=== PATIENT | male | born 1940 | race Caucasian/White ===

== ENCOUNTER 2024-04-26 11:16 | Emergency (ER) | payer MEDICARE, OTHER ==
[~2024-04-26] VITALS: Ht 172.7 cm; Wt 79.4 kg
[~2024-04-26 11:16] MED LIST: AMLODIPINE BESY10 MG PO; ASPI81EC; ATOR20; ATOR40TA PO; CIPR500 PO; COLCHICINE0.6 MG PO; Cranberry400 MG; DOXAZOSIN MESYLA2 MG PO; FISH OIL 1,2001 EAC4; HYDACE5 PO; Imdur-ER60 MG PO; METO100ER; OLME20-12.; OLMESARTAN MEDO40 MG PO; OMEP20ER PO; OXAYDO5 M1 PO; PANTOPRAZOLE SO2010; PLAVIX75 MG PO; POTASSIUM CITRA5 M10; TAMS.4ER PO
[2024-04-26] MEDS ORDERED: NS 1,000 ML IV SCH (11:25)
[2024-04-26 11:54] LABS: BASOPHILS ABSOLUTE AUTO 0.03 K/mm3 (0.00-0.23); BASOPHILS PERCENT AUTO 1 % (0-2); EOSINOPHILS ABSOLUTE AUTO 0.06 K/mm3 (0.00-0.68); EOSINOPHILS PERCENT AUTO 1 % (0-6); Hematocrit 39.1 % (37.0-53.0); Hemoglobin 13.2 g/dL (13.5-17.5); IMMATURE GRAN ABSOLUTE AUTO 0.01 K/mm3 (0.00-0.10); IMMATURE GRAN PERCENT AUTO 0 % (0-1); LYMPHOCYTES ABSOLUTE AUTO 1.65 K/mm3 (0.84-5.20); LYMPHOCYTES PERCENT AUTO 28 % (21-46); MONOCYTES ABSOLUTE AUTO 0.68 K/mm3 (0.16-1.47); MONOCYTES PERCENT AUTO 12 % (4-13); Mean Corpuscular HGB 31.4 pg (26.0-34.0); Mean Corpuscular HGB Conc 33.8 g/dL (31.5-36.5); Mean Corpuscular Volume 93 fL (80-100); Mean Platelet Volume 10.4 fL (9.1-12.4); NEUTROPHILS ABSOLUTE AUTO 3.39 K/mm3 (1.96-9.15); NEUTROPHILS PERCENT AUTO 58 % (41-73); Platelet Count 162 K/mm3 (150-400); RDW Coefficient Variation 13.2 % (11.7-14.2); RDW Standard Deviation 44.7 fL (35.1-46.3); Red Blood Cell Count 4.21 M/mm3 (4.30-5.90); White Blood Cell Count 5.82 K/mm3 (4.00-11.30)
[2024-04-26 11:59] LABS: Albumin, Blood 3.8 g/dL (3.4-5.0); Albumin/Globulin Ratio 1.3 (0.8-1.8); Bilirubin, Total 0.7 mg/dL (0.1-1.0); Bun/Creatinine Ratio 11.8 (12.0-20.0); Calcium, Blood 9.2 mg/dL (8.5-10.1); Creatinine, Blood 1.44 mg/dL (0.60-1.20); Total Protein, Blood 6.8 g/dL (6.4-8.2)
[2024-04-26 12:38] LABS: Source, Urine Clean Catch
[2024-04-26 12:41] LABS: Appearance, Urine Clear (Clear); Bilirubin, Urine Neg (Neg); Blood, Urine Neg (Neg); Color, Urine Yellow (P-Yellow); Glucose Qualitative, Urine Neg (Neg); Ketones, Urine Neg (Neg); Leukocyte Esterase, Urine Neg (Neg); Nitrite, Urine Neg (Neg); Protein, Urine 1+ (Neg); Urobilinogen, Urine NORM (Normal)
[2024-04-26 12:47] VITALS: BP 148/70
[2024-04-26] MEDS ORDERED: Clopidogrel Bisulfate 75 MG Tab PO ONE (13:55)
[2024-04-26] MEDS ORDERED: Aspirin 325 MG Tab PO ONE (13:55)
[2024-04-26] MEDS ORDERED: Aspir 8181 MG PO (14:17)
== END 2024-04-26 14:32 | disposition home or self-care (01) ==
LOC: ER 11:16
PROVIDERS: Emergency Medicine
DX: G45.9 Transient cerebral ischemic attack, unspecified (principal); I10 Essential (primary) hypertension; E78.5 Hyperlipidemia, unspecified; K21.9 Gastro-esophageal reflux disease without esophagitis; Z79.899 Other long term (current) drug therapy; Z79.82 Long term (current) use of aspirin
CPT/HCPCS: 70450; 80053; 83735; 85025; 93005; 93010; 93880; 96360; 99285-25; A9270; J7030

== ENCOUNTER 2024-07-01 18:24 | Inpatient (IN) | payer MEDICARE, OTHER ==
[~2024-07-01] VITALS: Ht 172.7 cm; Wt 76.5 kg
[~2024-07-01 18:24] MED LIST changes: +Aspir 8181 MG PO
[2024-07-01 20:31] LABS: BASOPHILS ABSOLUTE AUTO 0.03 K/mm3 (0.00-0.23); BASOPHILS PERCENT AUTO 0 % (0-2); EOSINOPHILS ABSOLUTE AUTO 0.02 K/mm3 (0.00-0.68); EOSINOPHILS PERCENT AUTO 0 % (0-6); Hematocrit 33.7 % (37.0-53.0); Hemoglobin 11.4 g/dL (13.5-17.5); IMMATURE GRAN ABSOLUTE AUTO 0.04 K/mm3 (0.00-0.10); IMMATURE GRAN PERCENT AUTO 0 % (0-1); LYMPHOCYTES ABSOLUTE AUTO 1.37 K/mm3 (0.84-5.20); LYMPHOCYTES PERCENT AUTO 14 % (21-46); MONOCYTES ABSOLUTE AUTO 1.16 K/mm3 (0.16-1.47); MONOCYTES PERCENT AUTO 12 % (4-13); Mean Corpuscular HGB 31.7 pg (26.0-34.0); Mean Corpuscular HGB Conc 33.8 g/dL (31.5-36.5); Mean Corpuscular Volume 94 fL (80-100); Mean Platelet Volume 10.1 fL (9.1-12.4); NEUTROPHILS ABSOLUTE AUTO 6.96 K/mm3 (1.96-9.15); NEUTROPHILS PERCENT AUTO 73 % (41-73); Platelet Count 143 K/mm3 (150-400); RDW Coefficient Variation 13.6 % (11.7-14.2); RDW Standard Deviation 46.5 fL (35.1-46.3); White Blood Cell Count 9.58 K/mm3 (4.00-11.30)
[2024-07-01 20:54] LABS: Albumin, Blood 3.3 g/dL (3.4-5.0); Albumin/Globulin Ratio 1.1 (0.8-1.8); Bun/Creatinine Ratio 13.1 (12.0-20.0); Creatinine, Blood 2.21 mg/dL (0.60-1.20); Potassium, Blood 4.2 mmol/L (3.5-5.5); Total Protein, Blood 6.3 g/dL (6.4-8.2)
[2024-07-01 22:50] LABS: Source, Urine Voided
[2024-07-01 22:57] LABS: Appearance, Urine Clear (Clear); Bilirubin, Urine Neg (Neg); Blood, Urine Neg (Neg); Glucose Qualitative, Urine Neg (Neg); Ketones, Urine Neg (Neg); Leukocyte Esterase, Urine Neg (Neg); Nitrite, Urine Neg (Neg); Protein, Urine 1+ (Neg); Urobilinogen, Urine NORM (Normal)
[2024-07-01 23:02] LABS: Color, Urine Pale Yellow (P-Yellow)
[2024-07-01] MEDS ORDERED: NS 1,000 ML IV SCH (23:15)
[2024-07-01] MEDS ORDERED: Magnesium Hydroxide Conc 10 ML UDC PO PRN (23:45)
[2024-07-01] MEDS ORDERED: FLU VACC TS2024-25(6MOS UP)/PF 45 MCG/0.5 ML SYRINGE IM ONE (23:50)
[2024-07-02] VITALS (7 sets, daily range): BP systolic 114–171; BP diastolic 61–98
--- NOTE | 2024-07-02 04:38 | NUR ---
SHIFT SUMMARY 84 YR M ADMITTED ON 07/01/24. FULL CODE. PT ABLE TO ANSWER ORIENTING QUESTIONS BUT IS VERY CONFUSED. USE OF THE CALL LIGHT WAS EXPLAINED TO HIM MULTIPLE TIMES BUT HE REFUSED TO USE IT BEFORE GETTING OUT OF BED ON HIS OWN. HE WOULD THEN YELL AT THE NURSE SAYING HE HAD NO WAY TO CONTACT HER AND THIS WAS HAPPENING BECAUSE OF INSURANCE. HE EXPRESSED THAT HE IS ANGRY FOR HAVING TO WAIT SO LONG IN THE ER. HE THEN PULLED HIS IV OUT AND SOMEHOW MANAGED TO GET BLOOD ALL OVER THE BED, FLOOR, SIDERAILS, TELE, AND HIMSELF. HE NEEDS CONSTANT DIRECTION AND IS ONLY BRIEFLY REDIRECTABLE. A NEW IV WAS PLACED IN HIS RIGHT AC. WILL CONTINUE TO MONITOR. BED IN LOW POSITION WITH ALARM ON, AND CALL LIGHT IN REACH.
[2024-07-02 05:45] LABS: Bun/Creatinine Ratio 14.3 (12.0-20.0); Calcium, Blood 8.8 mg/dL (8.5-10.1); Creatinine, Blood 1.68 mg/dL (0.60-1.20)
[2024-07-02] MEDS ORDERED: Heparin Sodium 5000 Units/ML 1ML MDV SC SCH (09:00)
[2024-07-02] MEDS ORDERED: NS 1,000 ML IV SCH ×3 (09:16→15:45)
[2024-07-02] MEDS ORDERED: QUEtiapine Fumarate 25 MG Tab PO PRN (13:15)
[2024-07-02] MEDS ORDERED: OLANZapine 10 MG Vial IM PRN (13:15)
[2024-07-02] MEDS ORDERED: CefTRIAXone Sodium 1,000 MG in NS 100 ML IV SCH (13:30)
[2024-07-02] MEDS ORDERED: MetroNIDAZOLE 500MG/NS 100 ml 100 ML IV SCH (14:30)
[2024-07-02] MEDS ORDERED: LORazepam 0.5 MG Tab PO ONE (15:20)
[2024-07-02] MEDS ORDERED: LORazepam 2 MG/ML 1ML Injection IV PRN ×3 (15:30→21:05)
[2024-07-02 15:44] LABS: BASOPHILS ABSOLUTE AUTO 0.02 K/mm3 (0.00-0.23); BASOPHILS PERCENT AUTO 0 % (0-2); EOSINOPHILS ABSOLUTE AUTO 0.02 K/mm3 (0.00-0.68); EOSINOPHILS PERCENT AUTO 0 % (0-6); Hematocrit 35.8 % (37.0-53.0); Hemoglobin 12.7 g/dL (13.5-17.5); IMMATURE GRAN ABSOLUTE AUTO 0.03 K/mm3 (0.00-0.10); IMMATURE GRAN PERCENT AUTO 0 % (0-1); LYMPHOCYTES ABSOLUTE AUTO 0.87 K/mm3 (0.84-5.20); LYMPHOCYTES PERCENT AUTO 10 % (21-46); MONOCYTES ABSOLUTE AUTO 1.07 K/mm3 (0.16-1.47); MONOCYTES PERCENT AUTO 12 % (4-13); Mean Corpuscular HGB 32.2 pg (26.0-34.0); Mean Corpuscular HGB Conc 35.5 g/dL (31.5-36.5); Mean Corpuscular Volume 91 fL (80-100); Mean Platelet Volume 11.5 fL (9.1-12.4); NEUTROPHILS ABSOLUTE AUTO 6.98 K/mm3 (1.96-9.15); NEUTROPHILS PERCENT AUTO 78 % (41-73); Platelet Count 192 K/mm3 (150-400); RDW Coefficient Variation 13.7 % (11.7-14.2); RDW Standard Deviation 45.9 fL (35.1-46.3); Red Blood Cell Count 3.94 M/mm3 (4.30-5.90); White Blood Cell Count 8.99 K/mm3 (4.00-11.30)
[2024-07-02] MEDS ORDERED: LORazepam 2 MG/ML 1ML Injection ONE (16:29)
[2024-07-02] MEDS ORDERED: LORazepam 2 MG/ML 1ML Injection IV ONE (16:30)
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
--- NOTE | 2024-07-02 17:16 | NUR ---
TRANSFER UPDATE REPORT RECIEVED FROM [facility] STAFF AT BEDSIDE AT 1600. FAMILY PRESENT AT THIS TIME. PT AGITATED AND RESTLESS AND IN TOUGH CUFFS. PT HALLUCINATING AND MUMBLING TO NO ONE LOOKING TOWARD COMPUTER IN THE ROOM. PT ORIENTED TO SELF AT THIS TIME. PT UNABLE TO IDENTIFY HIS DAUGHTER IN THE ROOM. THIS RN UPDATED FAMILY ON TRANSFER TO PCU, FAMILY VERBALLY UNDERSTOOD. MD NOTIFED OF AGGRESSION TOWARD STAFF PREVIOUSLY AND MD GAVE VERBAL ORDER FOR 1 MG ATIVAN FOR TRANSFER. ORDER PLACED AND 1 MG ATIVAN GIVEN FOR TRANSFER. PT CONTINUED TO BE RESTLESS ATIVAN WAS BEING PREPARED. MED FLOOR IMMIGRATION SERVICES OFFICER ATTEMPTED TO CALM PT DOWN. PT HEARD STATING "GET TYHE HELL AWAY FROM ME" TOP MED FLOOR IMMIGRATION SERVICES OFFICER. THIS RN ASKED ABOUT OTHER POSSIBLE TRIGGERS FOR PT. PT TRNASFERED TO PCU AT 1645 VIA HOSPITAL BED AND TOUGH CUFFS IN PLACE. PT BELONGINGS GATHERED AND TRANSFERED TO PCU 10 ALONG WITH CHART. PT CONTINUES TO BE RESTLESS AFTER RECIEVING 1 MG ATIVAN PER ORDER. PT SLEEPING HEAVILY AT ARRIVAL TO PCU BUT EXTREMITIES CONTINUE TO BE RESTLESS, PULLING AND KICKING. FAMILY IN PCU 10 AT TIME OF ARRIVAL. PT ROOM WITH MOST OF ITEMS REMOVED FOR SAFETY. VSS AT TIME OF ARRIVAL TO UNIT. PT SNORING WITH SATS RANGING 89-91%. LS CLEAR BUT DIFFICULT TO HEAR D/T SNORING. PT NOT ENDORSING PAIN AT THIS TIME. PT FAMILY LEFT TO LOWER STIMULI IN ROOM FOR PT TO TRY AND REST. PT DAUGHTER PEYTON LEFT HER PHONE NUMBER ON WHITE BOARD AND ASKED TO HAVE MD CALL WITH HEAD CT RESULTS SOON POSSIBLE. IV ABX INTITIATED ON MED FLOOR JUST PT WAS LEAVING [facility] FLOOR. NS TO RUN PER ORDER AFTER ABX IS COMPLETE. PT RESTRAINSTS ASSESSED AT TIME OF ARRIVAL, GOOD CIRCULATION NOTED IN ALL EXTREMITIES. CALL LIGHT PLACED IN REACH OF PT RIGHT HAND AND TELEMTRY REAPPLIED. BED IN LOWEST POSITION.
[2024-07-02 17:28] LABS: C-REACTIVE PROTEIN, EXT RANGE 3.26 mg/dL (0.000-0.300)
[2024-07-02 17:30] LABS: Albumin, Blood 3.5 g/dL (3.4-5.0); Albumin/Globulin Ratio 1.1 (0.8-1.8); Bilirubin, Total 0.8 mg/dL (0.1-1.0); Bun/Creatinine Ratio 15.5 (12.0-20.0); Calcium, Blood 8.8 mg/dL (8.5-10.1); Creatinine, Blood 1.42 mg/dL (0.60-1.20); Globulin, Blood 3.2 g/dL (2.2-4.0); Total Protein, Blood 6.7 g/dL (6.4-8.2)
[2024-07-02 19:42] LABS: Base Excess Venous -1.5 mmol/L; Bicarbonate Venous 22.9 mmol/L (24.0-30.0); PCO2 Venous 40.5 mmHg (38-42); pH Blood Venous 7.38 (7.34-7.37)
[2024-07-02] MEDS ORDERED: Flumazenil 0.1 MG / ML 5ML Vial ONE (20:30)
[2024-07-02] MEDS ORDERED: Flumazenil 0.1 MG / ML 5ML Vial IV ONE ×2 (20:45)
--- NOTE | 2024-07-02 21:00 | NUR ---
ASSUMPTION OF CARE/UPDATE PATIENT RESTRAINED IN TOUGH CUFFS. EYES CLOSED BUT IS RESTLESS IN BED DURING BEDSIDE REPORT. PATIENT ON RA, TACHYPNEIC, SNORE PRESENT, SPO2 88-90s. TACHYCARDIAC WITH HR 120-130s. PER REPORT, PATIENT AWAITNG HEAD CT BUT WAS UNABLE TO BE COMPLETED BECAUSE PATIENT IS TOO RESTLESS AND WOULD NOT BE ABLE TO STAY STILL FOR SCAN. RESIDENT IN UNIT DURING REPORT, ORDER FOR VBG RECEIVED. CALL PLACED TO DISTRICT SALES MANAGER REGARDING POSSIBLE IMAGING D/T INCREASE RESTLESSNESS AND AGITATION. PATIENT TO BE TRANSFERRED WITH ASSISTANCE IN ATTEMPT TO GET SCAN COMPLETED. ATIVAN ADMINISTERED IN CT D/T PATIENT THRASHING IN BED. MULTIPLE ATTEMPTS MADE TO GET SCAN COMPLETED AND WAS SUCCESSFUL. PATIENT TRANSFERRED BACK TO PCU AND BECAME INCREASINGLY SEDATED. HORACIO CALLED TO BEDSIDE, REVERSAL GIVEN PER ORDER. RT PLACED NASAL TRUMPET AND NONREBREATHER WAS PLACED ON PATIENT. PATIENT RECOVERED AND BECAME MORE ALERT AND BEGAN YELLING AT STAFF AND PULLING ON RESTRAINTS. STIMULUATION DECREASED IN ROOM AND PATIENT SITTING UP IN BED WITH EYES CLOSED.
--- NOTE | 2024-07-02 21:15 | NUR ---
UPDATE PATIENT NOTED TO BE SATTING 80s ON MINOTOR WITH 6L NASAL CANNULA INTO MOUTH. PATIENT BOOSTED IN BED AND SATs CONTINUED TO DECREASE. NONREBREATHER PLACED BACK ON PATIENT AND PATIENT THEN DESATTED INTO THE 50s. PATROL LADY CALLED. RT REPLACED NASAL TRUMPET PREVIOUS TRUMPET WAS REMOVED D/T PATIENT THRASHING AND IT WAS PULLED OUT. JAUNKER WAS USED TO ASSIST WITH MOVING PATIENT'S TOUNGE OUT OF AIRWAY. PATIENT O2 SATS RECOVERED. PATIENT TRANSFERRED TO ICU, BEDSIDE REPORT TO BE GIVEN TO PHARMACY INTAKE TECHNICIAN. FAMILY TO BE CALLED AND UPDATED WITH PATIENT'S STATUS.
[2024-07-02 21:52] LABS: PCO2 Arterial 43.7 mmHg (35-45); PO2 Arterial 232 mmHg (80-100); pH Blood Arterial 7.32 (7.35-7.45)
[2024-07-02] MEDS ORDERED: propofoL 100 ML IV SCH (22:00)
[2024-07-02] MEDS ORDERED: propofoL 100 ML IV ONE (22:17)
--- NOTE | 2024-07-02 22:30 | NUR ---
PT ARRIVES TO ROOM ICU 5 VIA GREASER OPERATOR CALL. PT TO ROOM AT 2140. TAT X [address] UPON ARRIVAL. CHANGED OUT FOR SOFT UPPER EXTREMITY RESTRAINTS. DR LEONARD IN ROOM WITH ORDER TO INTUBATE SECONDARY TO PT'S DECREASING LOC WITH HIGH POTENIAL FOR PT NOT TO BE ABLE TO PROTECT HIS AIRWAY. PT PLACED TO PROPOFOL DRIP FOR VENT TOLEANCE AND SEDATION. PT HAS NEED TO INCRIMENT DOSAGE UP TO 40 MCG'S/KG/MIN. SPUTUM SAMPLE COLLECTED PER ETT AND SENT TO LAB FOR PROCESSING. 16 SLOVENIAN TEMP-PROBE MYLES PLACED. OGT INSERTED. FOLLOW-UP CHEST XRAY DONE AND VIEWED BY DR CAREY AND DR LEONARD AND HAS BEEN OK'D FOR POSITION. WILL REVIEW CHART AND PLAN OF CARE FOR THIS PT.
[2024-07-03] VITALS (93 sets, daily range): BP systolic 114–189; BP diastolic 62–113
--- NOTE | 2024-07-03 00:31 | NUR ---
UPDATE CALL PLACED TO TUAN AND LEFT MESSAGE TO RETURN PHONE CALL FOR UPDATE ABOUT PATIENT'S STATUS. TUAN RETURNED CALL AND WAS UPDATED. SHE GAVE THIS RN DAUGHTER PEYTON'S NUMBER TO CALL AND GIVE UPDATE WELL. SPOKE WITH PEYTON AROUND 0000.
[2024-07-03 03:57] LABS: BASOPHILS ABSOLUTE AUTO 0.03 K/mm3 (0.00-0.23); BASOPHILS PERCENT AUTO 0 % (0-2); EOSINOPHILS ABSOLUTE AUTO 0.02 K/mm3 (0.00-0.68); EOSINOPHILS PERCENT AUTO 0 % (0-6); Hematocrit 34.7 % (37.0-53.0); Hemoglobin 11.9 g/dL (13.5-17.5); IMMATURE GRAN ABSOLUTE AUTO 0.03 K/mm3 (0.00-0.10); IMMATURE GRAN PERCENT AUTO 0 % (0-1); LYMPHOCYTES ABSOLUTE AUTO 1.03 K/mm3 (0.84-5.20); LYMPHOCYTES PERCENT AUTO 10 % (21-46); MONOCYTES ABSOLUTE AUTO 1.04 K/mm3 (0.16-1.47); MONOCYTES PERCENT AUTO 11 % (4-13); Mean Corpuscular HGB 31.5 pg (26.0-34.0); Mean Corpuscular HGB Conc 34.3 g/dL (31.5-36.5); Mean Corpuscular Volume 92 fL (80-100); Mean Platelet Volume 10.2 fL (9.1-12.4); NEUTROPHILS ABSOLUTE AUTO 7.77 K/mm3 (1.96-9.15); NEUTROPHILS PERCENT AUTO 78 % (41-73); Platelet Count 154 K/mm3 (150-400); RDW Coefficient Variation 13.7 % (11.7-14.2); RDW Standard Deviation 45.8 fL (35.1-46.3); Red Blood Cell Count 3.78 M/mm3 (4.30-5.90); White Blood Cell Count 9.92 K/mm3 (4.00-11.30)
[2024-07-03] MEDS ORDERED: Hydrogen Peroxide 1.5 % Solution MT SCH (04:00)
[2024-07-03 04:23] LABS: Albumin, Blood 3.3 g/dL (3.4-5.0); Bilirubin, Total 0.9 mg/dL (0.1-1.0); Bun/Creatinine Ratio 17.2 (12.0-20.0); Creatinine, Blood 1.28 mg/dL (0.60-1.20); Globulin, Blood 3.2 g/dL (2.2-4.0); Magnesium, Blood 1.9 mg/dL (1.6-2.4); Phosphorus, Blood 1.7 mg/dL (2.5-4.9); Total Protein, Blood 6.5 g/dL (6.4-8.2)
[2024-07-03 04:43] LABS: Base Excess Venous -0.8 mmol/L; Bicarbonate Venous 24.3 mmol/L (24.0-30.0); PCO2 Venous 31.2 mmHg (38-42); pH Blood Venous 7.47 (7.34-7.37)
--- NOTE | 2024-07-03 05:36 | NUR ---
PT CONTINUES TO MAINTAIN >90 PERCENT SATURATIONS ON VENT. PROPOFOL AT 40 MCG'S/KG/MIN. REMAINS LIGHTLY SEDATED. AWAKENS WITH ORAL CARE AND TURNS. HAVE PLACED 20 GAUGE 10 CM POWERGLIDE TO RIGHT UPPER ARM. PT'S HEART RATE AND BLOOD PRESSURES REMAIN WNL WHILE ON SEDATION. WILL CONTINUE TO MONITOR PT, AND WILL REPORT OFF TO ONCOMING RN.
[2024-07-03] MEDS ORDERED: Cetylpyridinium Chloride 1 EA MISC MT SCH (08:00)
[2024-07-03] MEDS ORDERED: Midazolam HCl 1MG / ML 2ML Vial ONE ×2 (10:21→16:23)
[2024-07-03] MEDS ORDERED: Midazolam HCl 1MG / ML 2ML Vial IV PRN (10:30)
[2024-07-03] MEDS ORDERED: Haloperidol Lactate Inj. 5 MG/ML Injection IV PRN (10:30)
[2024-07-03] MEDS ORDERED: dexmedeTOMIDine 100 ML IV SCH (10:35)
[2024-07-03] MEDS ORDERED: Potassium Phosphate Dibasic 30 MM in Dextrose 5% 500 ML IV STA (10:36)
[2024-07-03] MEDS ORDERED: NS 1,000 ML IV SCH (11:00)
[2024-07-03] MEDS ORDERED: QUEtiapine Fumarate 25 MG Tab PT SCH ×2 (11:00→17:00)
[2024-07-03] MEDS ORDERED: Rocuronium Bromide 10 MG/ML 5ML Injection IV ONE (15:21)
[2024-07-03] MEDS ORDERED: Etomidate 2MG / ML 10ML Vial IV ONE (15:21)
[2024-07-03] MEDS ORDERED: Heparin Sodium 5000 Units/ML 1ML MDV SC SCH (16:00)
--- NOTE | 2024-07-03 17:48 | NUR ---
PATIENT MAINTAINING O2 SATS AT 99-100%. MULTIPLE ATTEMPTS TO TITRATE DOWN PROPOFOL TODAY. PATIENT BECAME SEVERLY AGITATED. ADDITION OF PRECEDEX NOT SUCCESSFUL PT B/P REDUCED TO 50-55, UNABLE TO TOLERATE. REPLACED PHOS. LUNG SOUNDS CLEAR/DIM IN BASES. BOWEL TONES HYPOACTIVE. PATIENT DOES HAVE GAG AND COUGH REFLEX. HE WOULD AWAKEN AND MAKE MOVEMENT TO EXIT BED BUT WOULD NOT PARTICIPATE IN AMY EXAM OR OPEN HIS EYES. PROM PERFORMED. FAMILY IN THROUGH OUT THE DAY TODAY AND UPDATES GIVEN.
--- NOTE | 2024-07-03 19:22 | NUR ---
ASSUMED CARE OF PT AT 1900. REPORT RECEIVED AT BEDSIDE. PT PRESENTS IN BED. INTUBATED. AC/VC 16, Tv 480, PEEP 5.0, FIO2 30 PERCENT. PT MAINTAINS SATURATIONS > 90 PERCENT. PT SEDATED WITH PROPOFOL AT 30 MCG'S/KG/MIN. PT IN NO APPARENT DISTRESS AT THIS TIME. WILL REVIEW CHART AND PLAN OF CARE.
--- NOTE | 2024-07-03 22:47 | NUR ---
HAVE BROUGHT PROPOFOL UP TO 35 MCG'S/KG/MIN SECONDARY TO PT'S QUICK ESCALATION AND POOR VENT TOLERANCE. SPOKE TO DR THOMPSON AND HE RECOMMENDS USING HALDOL ADJUNCT AND TO USE HALDOL 'LIBERALLY'. ADMINISTERED 5 MG WITH GOOD RESULTS.
[2024-07-04] VITALS (59 sets, daily range): BP systolic 122–194; BP diastolic 57–94
[2024-07-04] MEDS ORDERED: HydrALAZINE HCl 20 MG / ML 1ML Vial IV PRN (00:45)
--- NOTE | 2024-07-04 03:21 | NUR ---
ADMINISTERED 20 MG HYDRALAZINE FOR INCREASED BP. THIS AFFECTIVE. PT HAS BEEN MEDICATED WITH HALDOL WHEREAS HE HAS IMPROVED IN VENT TOLERANCE. THIS IN ADDITION TO INCREASING PROPOFOL TO 40 MCG'S/KG/MIN. HAVE DISCUSSED WITH DR JAY JETER TRIAL FOR THIS AM. PLAN TO BE TO ADMINISTER 5 MG HALDOL WITH WEAN TRIAL AND ATTEMPT TO GET PT THROUGH TRIAL. DISCUSSED WITH RESPIRATORY THERAPY, SAMANTART. WILL MAKE DO THIS NEAR 0500 THIS AM.
[2024-07-04 05:25] LABS: Hematocrit 36.7 % (37.0-53.0); Hemoglobin 12.7 g/dL (13.5-17.5); Mean Corpuscular HGB 31.2 pg (26.0-34.0); Mean Corpuscular HGB Conc 34.6 g/dL (31.5-36.5); Mean Corpuscular Volume 90 fL (80-100); Mean Platelet Volume 10.2 fL (9.1-12.4); Platelet Count 148 K/mm3 (150-400); RDW Coefficient Variation 13.5 % (11.7-14.2); RDW Standard Deviation 44.8 fL (35.1-46.3); Red Blood Cell Count 4.07 M/mm3 (4.30-5.90); White Blood Cell Count 7.34 K/mm3 (4.00-11.30)
[2024-07-04 05:40] LABS: Bun/Creatinine Ratio 14.7 (12.0-20.0); Calcium, Blood 8.5 mg/dL (8.5-10.1); Creatinine, Blood 1.02 mg/dL (0.60-1.20); Potassium, Blood 3.3 mmol/L (3.5-5.5)
--- NOTE | 2024-07-04 06:32 | NUR ---
ATTEMPTED WEAN TRIAL THIS AM. ADMINISTERED 5 MG HALDOL. AND CUT THE PROPOFOL IN HALF FROM 40 MCG'S, DOWN TO 20 MCG'S/KG/MIN. PT WITHIN APPROX 5 MINUTES AWAKENS AND BEGINS TO GET AGGRESSIVE IN BED. ATTEMPTS TO GET AHOLD OF HIS ETT. DOES NOT REDIRECT. PT'S RESPIRATORY RATE INCREASES TO 60 PER MINUTE. HEART RATE 110'S TO 120'S. PLACED PT BACK TO PROPOFOL AT 40 MCG'S/KG/MIN. FOLLOWED BY A DOSE OF 1 MG VERSED. PT CONTINUES TO THRASH ABOUT BED. 30 MINUTES INTO RETURN TO SEDATION. DID PLACE PROPOFOL UP TO 50 MCG'S/KG/MIN. ATTEMPTED TO GET PT TO SQUEEZE FINGERS WENT UNSUCESSFUL. WILL CONTINUE TO MONITOR PT, AND WILL REPORT OFF TO ONCOMING RN.
[2024-07-04 08:48] LABS: Albumin, Blood 2.9 g/dL (3.4-5.0); Anion Gap 13 mmol/L (3-11); Blood Urea Nitrogen 14 mg/dL (8-24); Bun/Creatinine Ratio 13.2 (12.0-20.0); CO2, Blood 19 mmol/L (21-32); Calcium, Blood 8.5 mg/dL (8.5-10.1); Chloride, Blood 112 mmol/L (98-108); Creatinine, Blood 1.06 mg/dL (0.60-1.20); Glomerular Filtration Rate 70 (60-); Glucose, Blood 98 mg/dL (70-99); Phosphorus, Blood 2.5 mg/dL (2.5-4.9); Potassium, Blood 3.3 mmol/L (3.5-5.5); Sodium, Blood 141 mmol/L (136-145)
--- NOTE | 2024-07-04 11:55 | NUR ---
Pastoral support provided. Pt's family were in the room present with the patient. Family expressed their thoughts and emotions related to the patient's condition and situation. Empathic listening and validating feedback extended. Consolatory prayer was offered and the family were participatory congruently. Family are supportive of one another as they anticipate the patient's progression. Subsequent pastoral support to remain available as needed.
[2024-07-04] MEDS ORDERED: Ziprasidone Mesylate 20 MG / Vial IM ONE (12:00)
[2024-07-04] MEDS ORDERED: Morphine Sulfate 10 MG/ML 1MLSYR IV PRN (14:45)
[2024-07-04] MEDS ORDERED: Promethazine HCl 25 MG Supp PR PRN (14:45)
[2024-07-04] MEDS ORDERED: Haloperidol Lactate Inj. 5 MG/ML Injection IV PRN (14:45)
[2024-07-04] MEDS ORDERED: LORazepam 2 MG/ML 1ML Injection IV PRN (14:45)
[2024-07-04] MEDS ORDERED: Atropine Sulfate 1% Opth Soln 2ML BTL SL PRN (14:50)
[2024-07-04] MEDS ORDERED: Morphine Sulfate 20 MG/1ML 1 ML Oral Syringe SL PRN (14:50)
--- NOTE | 2024-07-04 15:10 | NUR ---
EXTUBATION/COMFORT CARE. PT EXTUBATED APPROX 1415. PT TOSSING IN BED GROANING BUT NOT OPENING HIS EYES OR FOLLOWING ANY COMMANDS. FAMILY AT BEDSIDE AT THIS TIME REQUESTING COMFORT CARE MEASURES. PT TRANSIIONED TO COMFORT CARE AND GIVEN IV ATIVAN AND ROXANOL APPREARING COMFORTABLE AT THIS TIME.
[2024-07-04] MEDS ORDERED: Scopolamine Hydrobromide Patch TOP PRN (15:15)
--- NOTE | 2024-07-04 18:43 | NUR ---
DAY SHIFT SUMMARY PT MADE COMFORT CARE FOLLOWING EXTUBATION, SEE PREVIOUS NOTE FOR DETAILS. PT APPEARING COMFORTABLE W FAMILY AT BEDSIDE. WILL REPORT TO ONCOMING RN.
== END 2024-07-04 23:15 | DRG 682 ==
LOC: ER 18:24 → MEDS 18:25 → ER 18:25 → ERHOLD 18:25 → MEDS 07-02 00:50 → ICUE 07-02 14:45 → MEDS 07-02 14:45 → ERHOLD 07-02 14:45 → PCU 07-02 16:44 → ICUE 07-02 21:43 → MEDS 07-04 23:15
PROVIDERS: Hospitalist; Internal Medicine; Internal Medicine Critical Care Medicine; Student in an Organized Health Care Education/Training Program; ADMIT Internal Medicine
PROC: 0BH17EZ Insertion of Endotracheal Airway into Trachea, Via Natural or Artificial Opening (ICD-10-PCS; principal; 2024-07-02)
PROC: 5A1945Z Respiratory Ventilation, 24-96 Consecutive Hours (ICD-10-PCS; 2024-07-02)
PROC: 0DH67UZ Insertion of Feeding Device into Stomach, Via Natural or Artificial Opening (ICD-10-PCS; 2024-07-02)
PROC: 4A033R1 Measurement of Arterial Saturation, Peripheral, Percutaneous Approach (ICD-10-PCS; 2024-07-02)
PROC: 3E03329 Introduction of Other Anti-infective into Peripheral Vein, Percutaneous Approach (ICD-10-PCS; 2024-07-02)
DX: N17.9 Acute kidney failure, unspecified (principal); G92.8 Other toxic encephalopathy; F03.911 Unspecified dementia, unspecified severity, with agitation; Z78.1 Physical restraint status; Z66 Do not resuscitate; Z51.5 Encounter for palliative care; E78.00 Pure hypercholesterolemia, unspecified; N40.0 Benign prostatic hyperplasia without lower urinary tract symptoms; K21.9 Gastro-esophageal reflux disease without esophagitis; E86.1 Hypovolemia; I12.9 Hypertensive chronic kidney disease with stage 1 through stage 4 chronic kidney disease, or unspecified chronic kidney disease; N18.31 Chronic kidney disease, stage 3a; I67.9 Cerebrovascular disease, unspecified; D63.1 Anemia in chronic kidney disease; Z94.7 Corneal transplant status; Z96.0 Presence of urogenital implants; Z79.84 Long term (current) use of oral hypoglycemic drugs; Z79.899 Other long term (current) drug therapy; Z79.02 Long term (current) use of antithrombotics/antiplatelets; Z79.82 Long term (current) use of aspirin; Z86.73 Personal history of transient ischemic attack (TIA), and cerebral infarction without residual deficits
CPT/HCPCS: 31500; 36415; 36600; 51702; 70450; 71045; 74177; 80048; 80053; 80069; 82803; 82947; 83735; 84100; 85025; 85027; 85651; 86140; 87070; 87205; 93005; 93010; 94002; 94003; 96360; 96372; 97165; 97530; 99285-25; A9270; C1751; G0378; J0360; J0696; J1630; J1644; J2060; J2250; J2270; J2704; J3486; J7030; J7060; Q9967